=== PATIENT | male | born 1970 | race Caucasian/White ===

== ENCOUNTER 2020-01-14 16:43 | Emergency (ER) | payer MEDICAID ==
[2020-01-14 16:58] VITALS: RESP 18; TEMP 98.7
[2020-01-14] MEDS ORDERED: ONDANSETRON 4 MG/2 ML VIAL IVP STA (17:06)
[2020-01-14] MEDS ORDERED: MORPHINE SULFATE 4 MG/ML SYRINGE IVP STA (17:06)
[2020-01-14] MEDS ORDERED: KETOROLAC 30 MG/ML 1 ML VIAL IVP STA (17:06)
[2020-01-14 17:40] LABS: Basophils % (A) 0 %; Eosinophils # (A) 0.4 k/uL (0-0.7); Eosinophils % (A) 3 %; HCT 40.8 % (39.0-53.0); Lymphocytes # (A) 2.1 k/uL (1.0-4.8); Lymphocytes % (A) 16 %; MCH 31.3 pg (25.0-35.0); MCHC 34.4 g/dL (31.0-37.0); MCV 90.9 fL (80.0-100.0); Mean Platelet Volume 7.7; Monocytes # (A) 0.6 k/uL (0-1.0); Monocytes % (A) 4 %; Neutrophils % (A) 76 %; Platelet Count 189 k/uL (150-450); RBC 4.49 m/uL (4.30-5.90); RDW 12.5 % (11.5-15.5); WBC 13.1 k/uL (3.8-10.6)
--- NOTE | 2020-01-14 17:51 | ED ---
Skin/Abscess/FB HPI - General Chief complaint: Skin/Abscess/Foreign Body Stated complaint: Rash,L leg poss blood clot Time Seen by Provider: 01/14/20 16:58 Source: patient, RN notes reviewed Mode of arrival: wheelchair Limitations: no limitations - History of Present Illness Initial comments: This a 49-year-old male presents emergency Department chief complaint left leg pain, rash. Patient states that he's had on-and-off fever last couple days in which he had COVID testing pending results. Patient states that no significant URI symptoms. Patient states that overnight he developed this leg pain and rash on his left lower leg over the anterior surface. Patient states it is very painful to touch. Denies any significant leg swelling no groin pain. Patient denies any trauma. - Related Data Home Medications Medication Instructions Recorded Confirmed amLODIPine BESYLATE/BENAZEPRIL 1 cap PO HS 01/14/20 01/14/20 [amLODIPine BESYLATE/BENAZEPRIL 10-40 MG] Previous Rx's Medication Instructions Recorded Cephalexin [Keflex] 500 mg PO Q6HR #40 cap 01/14/20 Ibuprofen [Motrin] 800 mg PO Q6HR #30 tab 01/14/20 Allergies Allergy/AdvReac Type Severity Reaction Status Date / Time No Known Allergies Allergy Verified 01/14/20 18:41 Review of Systems ROS Statement: Those systems with pertinent positive or pertinent negative responses have been documented in the HPI. ROS Other: All systems not noted in ROS Statement are negative. Past Medical History Past Medical History: Hypertension History of Any Multi-Drug Resistant Organisms: None Reported Past Surgical History: No Surgical Hx Reported Past Psychological History: No Psychological Hx Reported Smoking Status: Current every day smoker Past Alcohol Use History: Occasional Past Drug Use History: None Reported General Exam Limitations: no limitations General appearance: alert, in no apparent distress Head exam: Present: atraumatic, normocephalic, normal inspection Respiratory exam: Present: normal lung sounds bilaterally. Absent: respiratory distress, wheezes, rales, rhonchi, stridor Cardiovascular Exam: Present: regular rate, normal rhythm, normal heart sounds. Absent: systolic murmur, diastolic murmur, rubs, gallop, clicks Extremities exam: Present: other (There is a rash with anterior surface of the arita, it is erythematous slightly raised, papular vesicular small petechia noted, severely tender with palpation ) Neurological exam: Present: alert, oriented X3 Skin exam: Present: warm, dry, intact, normal color. Absent: rash Course Vital Signs 01/14/20 16:54 Temperature 98.7 F Pulse Rate 84 Respiratory 18 Rate Blood Pressure 158/84 O2 Sat by Pulse 96 Oximetry Medical Decision Making - Medical Decision Making 49-year-old male presented for left leg rash, intermittent fevers. Patient is afebrile AND is negative for acute DVT as concerned on outpatient basis. Patient does have mild leukocytosis, noted of the left inguinal region. Patient appears to have some sort of sialitis versus contact her cystitis, vasculitis. Patient placed on antibiotics for follow-up dermatology for possible biopsy, steroid treatments. - Lab Data Result diagrams: 01/14/20 17:24 01/14/20 17:24 Lab Results 01/14/20 01/14/20 01/14/20 Range/Units 17:24 17:24 17:24 WBC 13.1 H (3.8-10.6) k/uL RBC 4.49 (4.30-5.90) m/uL Hgb 14.0 (13.0-17.5) gm/dL Hct 40.8 (39.0-53.0) % MCV 90.9 (80.0-100.0) fL MCH 31.3 (25.0-35.0) pg MCHC 34.4 (31.0-37.0) g/dL RDW 12.5 (11.5-15.5) % Plt Count 189 (150-450) k/uL Neutrophils % 76 % Lymphocytes % 16 % Monocytes % 4 % Eosinophils % 3 % Basophils % 0 % Neutrophils # 10.0 H (1.3-7.7) k/uL Lymphocytes # 2.1 (1.0-4.8) k/uL Monocytes # 0.6 (0-1.0) k/uL Eosinophils # 0.4 (0-0.7) k/uL Basophils # 0.0 (0-0.2) k/uL Sodium 133 L (137-145) mmol/L Potassium 4.2 (3.5-5.1) mmol/L Chloride 101 (98-107) mmol/L Carbon Dioxide 25 (22-30) mmol/L Anion Gap 7 mmol/L BUN 19 (9-20) mg/dL Creatinine 0.77 (0.66-1.25) mg/dL Est GFR (CKD-EPI)AfAm >90 (>60 ml/min/1.73 sqM) Est GFR (CKD-EPI)NonAf >90 (>60 ml/min/1.73 sqM) Glucose 120 H (74-99) mg/dL Plasma Lactic Acid Chandu 0.6 L (0.7-2.0) mmol/L Calcium 8.7 (8.4-10.2) mg/dL Total Bilirubin 0.7 (0.2-1.3) mg/dL AST 27 (17-59) U/L ALT 42 (4-49) U/L Alkaline Phosphatase 61 (38-126) U/L C-Reactive Protein 159.4 H (<10.0) mg/L Total Protein 6.8 (6.3-8.2) g/dL Albumin 3.9 (3.5-5.0) g/dL Disposition Clinical Impression: Left leg cellulitis Disposition: HOME SELF-CARE Condition: Stable Instructions (If sedation given, give patient instructions): Cellulitis (ED) Additional Instructions: Please return to the Emergency Department if symptoms worsen or any other concerns. Prescriptions: Cephalexin [Keflex] 500 mg PO Q6HR #40 cap Ibuprofen [Motrin] 800 mg PO Q6HR #30 tab Is patient prescribed a controlled substance at d/c from ED?: No Referrals: Nadeem Yoo MD [Primary Care Provider] - 1-2 days Graeme Duffy MD [STAFF PHYSICIAN] - 1-2 days Time of Disposition: 18:45
[2020-01-14 18:00] LABS: ALT 42 U/L (4-49); AST 27 U/L (17-59); African American GFR (CKD) >90 (>60 ml/min/1.73 sqM); Albumin 3.9 g/dL (3.5-5.0); Alkaline Phosphatase 61 U/L (38-126); Anion Gap 7 mmol/L; Blood Urea Nitrogen 19 mg/dL (9-20); Calcium 8.7 mg/dL (8.4-10.2); Carbon Dioxide 25 mmol/L (22-30); Chloride 101 mmol/L (98-107); Non-African American GFR(CKD) >90 (>60 ml/min/1.73 sqM); Potassium 4.2 mmol/L (3.5-5.1); Sodium 133 mmol/L (137-145); Total Bilirubin 0.7 mg/dL (0.2-1.3); Total Protein 6.8 g/dL (6.3-8.2)
--- NOTE | 2020-01-14 18:13 | US ---
EXAMINATION TYPE: US venous doppler duplex LE LT DATE OF EXAM: 01/14/2020 6:01 PM COMPARISON: NONE CLINICAL HISTORY: pain. Pain left calf area x 1 day. No hx of DVT. Patient does not take blood thinne rs. SIDE PERFORMED: Left TECHNIQUE: The lower extremity deep venous system is examined utilizing real time linear array sonog cris with graded compression, doppler sonography and color-flow sonography. VESSELS IMAGED: External Iliac Vein (EIV) Common Femoral Vein Deep Femoral Vein Greater Saphenous Vein * Femoral Vein Popliteal Vein Small Saphenous Vein * Proximal Calf Veins (* superficial vessels) Left Leg: No evidence of DVT in veins imaged at this time from prox calf veins to EIV. Hypoechoic area with hyperechoic center and vascular hilum seen within the left groin measurin.3 x 3.5 x 1.4 cm. IMPRESSION: No evidence of deep vein thrombosis in the left leg. There is large left inguinal lymph node.
[2020-01-14 18:14] LABS: Glucose 120 mg/dL (74-99)
[2020-01-14 18:41] LABS: C Reactive Protein 159.4 mg/L (<10.0)
[2020-01-14] MEDS ORDERED: cefTRIAXone IN SWFI 1,000 MG/10 ML SYRINGE IVP STA (18:41)
[2020-01-14] MEDS ORDERED: ACET/COD 300 MG/30 MG STARTER PACK 6 TAB BTL PO STA (18:42)
[2020-01-14 18:43] VITALS: BP 145/87; PULSE 71
== END 2020-01-14 18:47 | disposition home or self-care (01) ==
LOC: EC 16:43
DX: L03.116 Cellulitis of left lower limb (principal); I10 Essential (primary) hypertension; F17.200 Nicotine dependence, unspecified, uncomplicated; Z79.899 Other long term (current) drug therapy
CPT/HCPCS: 36415; 80053; 83605; 85025; 86140; 93971; 99284; 96374; 96375 ×3; J2270; J2405; J0696; J1885

== ENCOUNTER 2020-01-16 19:21 | Emergency (ER) | payer MEDICAID ==
[2020-01-16] MEDS ORDERED: cefTRIAXone IN SWFI 1,000 MG/10 ML SYRINGE IVP STA (19:57)
[2020-01-16 20:33] LABS: Basophils # (A) 0.1 k/uL (0-0.2); Basophils % (A) 1 %; Eosinophils # (A) 0.3 k/uL (0-0.7); Eosinophils % (A) 3 %; HCT 41.7 % (39.0-53.0); HGB 13.6 gm/dL (13.0-17.5); Lymphocytes # (A) 2.4 k/uL (1.0-4.8); Lymphocytes % (A) 26 %; MCH 29.8 pg (25.0-35.0); MCHC 32.7 g/dL (31.0-37.0); Mean Platelet Volume 8.3; Monocytes # (A) 0.6 k/uL (0-1.0); Monocytes % (A) 7 %; Neutrophils # (A) 5.7 k/uL (1.3-7.7); Neutrophils % (A) 62 %; Platelet Count 217 k/uL (150-450); RBC 4.58 m/uL (4.30-5.90); RDW 12.4 % (11.5-15.5); WBC 9.2 k/uL (3.8-10.6)
--- NOTE | 2020-01-16 20:36 | ED ---
General Adult HPI - General Chief complaint: Skin/Abscess/Foreign Body Stated complaint: Revisit Rash Time Seen by Provider: 01/16/20 19:33 Source: patient, RN notes reviewed Mode of arrival: ambulatory Limitations: no limitations - History of Present Illness Initial comments: 49-year-old male with a past medical history of hypertension presents to the emergency room for a clean of rash to the left leg. Patient states this started a few days ago. Patient was seen here 2 days ago and started on Keflex. He states that the area was circled with a black marker. Patient states he is unsure if it is getting better or worse. He reports that it does not seem to have spread across the black line in the pain is better. Patient did have a fever 3 days ago however has not had any fever since. Ultrasound of the left leg was negative for DVT. Patient was told if it is not improving in 2 days to return to the emergency room. Denies constitutional symptoms. - Related Data Home Medications Medication Instructions Recorded Confirmed amLODIPine BESYLATE/BENAZEPRIL 1 cap PO HS 01/14/20 01/14/20 [amLODIPine BESYLATE/BENAZEPRIL 10-40 MG] Previous Rx's Medication Instructions Recorded Cephalexin [Keflex] 500 mg PO Q6HR #40 cap 01/14/20 Ibuprofen [Motrin] 800 mg PO Q6HR #30 tab 01/14/20 Sulfamethox-Tmp 800-160Mg [Bactrim 1 tab PO Q12HR #20 tab 01/16/20 DS 800-160 mg] Allergies Allergy/AdvReac Type Severity Reaction Status Date / Time No Known Allergies Allergy Verified 01/16/20 19:31 Review of Systems ROS Statement: Those systems with pertinent positive or pertinent negative responses have been documented in the HPI. ROS Other: All systems not noted in ROS Statement are negative. Past Medical History Past Medical History: Hypertension History of Any Multi-Drug Resistant Organisms: None Reported Past Surgical History: No Surgical Hx Reported Past Psychological History: No Psychological Hx Reported Smoking Status: Current every day smoker Past Alcohol Use History: Occasional Past Drug Use History: None Reported General Exam Limitations: no limitations General appearance: alert, in no apparent distress Head exam: Present: atraumatic, normocephalic, normal inspection Eye exam: Present: normal appearance, PERRL, EOMI. Absent: scleral icterus, conjunctival injection, periorbital swelling ENT exam: Present: normal exam, mucous membranes moist Neck exam: Present: normal inspection. Absent: tenderness, meningismus, lymphadenopathy Respiratory exam: Present: normal lung sounds bilaterally. Absent: respiratory distress, wheezes, rales, rhonchi, stridor Cardiovascular Exam: Present: regular rate, normal rhythm, normal heart sounds. Absent: systolic murmur, diastolic murmur, rubs, gallop, clicks Extremities exam: Present: other (Erythema noted to the left anterior lower leg measuring about 20 x 10 cm) Course Vital Signs 01/16/20 19:27 Temperature 98.7 F Pulse Rate 81 Respiratory 18 Rate Blood Pressure 138/84 O2 Sat by Pulse 98 Oximetry Medical Decision Making - Medical Decision Making HPI and physical exam as documented. Erythema is not extending past the black marker. White blood cell count is improved from 13-9.2. CMP is unremarkable. Patient is afebrile and has not had a fever since Monday. Patient was given a dose of IV antibiotics here in the emergency room. At this time I discussed with him and we agree that he should try antibiotics for a couple more days outpatient. He was started on Bactrim as well to cover for MRSA. He will return here for any worsening symptoms. He will try to follow up with Dr. Yoo tomorrow morning. - Lab Data Result diagrams: 01/16/20 20:15 01/16/20 20:15 Lab Results 01/16/20 01/16/20 01/16/20 Range/Units 20:15 20:15 20:15 WBC 9.2 (3.8-10.6) k/uL RBC 4.58 (4.30-5.90) m/uL Hgb 13.6 (13.0-17.5) gm/dL Hct 41.7 (39.0-53.0) % MCV 91.0 (80.0-100.0) fL MCH 29.8 (25.0-35.0) pg MCHC 32.7 (31.0-37.0) g/dL RDW 12.4 (11.5-15.5) % Plt Count 217 (150-450) k/uL Neutrophils % 62 % Lymphocytes % 26 % Monocytes % 7 % Eosinophils % 3 % Basophils % 1 % Neutrophils # 5.7 (1.3-7.7) k/uL Lymphocytes # 2.4 (1.0-4.8) k/uL Monocytes # 0.6 (0-1.0) k/uL Eosinophils # 0.3 (0-0.7) k/uL Basophils # 0.1 (0-0.2) k/uL Sodium 135 L (137-145) mmol/L Potassium 3.9 (3.5-5.1) mmol/L Chloride 104 (98-107) mmol/L Carbon Dioxide 23 (22-30) mmol/L Anion Gap 8 mmol/L BUN 25 H (9-20) mg/dL Creatinine 0.84 (0.66-1.25) mg/dL Est GFR (CKD-EPI)AfAm >90 (>60 ml/min/1.73 sqM) Est GFR (CKD-EPI)NonAf >90 (>60 ml/min/1.73 sqM) Glucose 114 H (74-99) mg/dL Plasma Lactic Acid Chandu 0.9 (0.7-2.0) mmol/L Calcium 9.4 (8.4-10.2) mg/dL Total Bilirubin 0.5 (0.2-1.3) mg/dL AST 31 (17-59) U/L ALT 59 H (4-49) U/L Alkaline Phosphatase 87 (38-126) U/L Total Protein 6.7 (6.3-8.2) g/dL Albumin 3.8 (3.5-5.0) g/dL Disposition Clinical Impression: Left leg cellulitis Disposition: HOME SELF-CARE Condition: Good Instructions (If sedation given, give patient instructions): Cellulitis (ED) Additional Instructions: Continue to take Keflex as directed. Take Bactrim in addition to Keflex every 12 hours. Monitor for spreading redness outside of black line. Follow-up with your doctor tomorrow morning. If symptoms are still not improving after the next few days return to the emergency room. If he gets any other worsening symptoms or fevers return to the emergency room as well. Prescriptions: Sulfamethox-Tmp 800-160Mg [Bactrim DS 800-160 mg] 1 tab PO Q12HR #20 tab Is patient prescribed a controlled substance at d/c from ED?: No Referrals: Nadeem Yoo MD [Primary Care Provider] - 1-2 days Time of Disposition: 22:13
[2020-01-16 20:43] LABS: ALT 59 U/L (4-49); AST 31 U/L (17-59); African American GFR (CKD) >90 (>60 ml/min/1.73 sqM); Albumin 3.8 g/dL (3.5-5.0); Alkaline Phosphatase 87 U/L (38-126); Anion Gap 8 mmol/L; Blood Urea Nitrogen 25 mg/dL (9-20); Calcium 9.4 mg/dL (8.4-10.2); Carbon Dioxide 23 mmol/L (22-30); Chloride 104 mmol/L (98-107); Glucose 114 mg/dL (74-99); Non-African American GFR(CKD) >90 (>60 ml/min/1.73 sqM); Potassium 3.9 mmol/L (3.5-5.1); Sodium 135 mmol/L (137-145); Total Bilirubin 0.5 mg/dL (0.2-1.3); Total Protein 6.7 g/dL (6.3-8.2)
--- NOTE | 2020-01-16 21:53 | XR ---
PROCEDURE: XR tibia fibula LT - 4 views DATE AND TIME: 01/16/2020 8:43 PM CLINICAL INDICATION: PHH; pain TECHNIQUE: Department protocol COMPARISON: None FINDINGS: There is no fracture or malalignment. The soft tissues are unremarkable. IMPRESSION: NO ACUTE PROCESS.
[2020-01-16] MEDS ORDERED: SULFAMETH-TMP DS STARTER PACK 2 TAB BTL PO STA (22:10)
[2020-01-16 22:47] VITALS: BP 141/98; PULSE 16; RESP 19; TEMP 97.9
== END 2020-01-16 22:45 | disposition home or self-care (01) ==
LOC: EC 19:21
DX: L03.116 Cellulitis of left lower limb (principal); I10 Essential (primary) hypertension; F17.200 Nicotine dependence, unspecified, uncomplicated; Z79.899 Other long term (current) drug therapy
CPT/HCPCS: 36415; 80053; 83605; 85025; 87040; 73590; 99283; 96374; J0696